=== PATIENT | female | born 1940 | race Caucasian/White ===

== ENCOUNTER → 2016-09-14 | Outpatient (CLI) | payer OTHER ==
[~2016-09-14] VITALS: Ht 154.9 cm; Wt 83.2 kg
[~2016-09-14] MED LIST: ADVIL PM CAPLE1 EACH PO; ATENOLOL 25 MG25 M1 PO; CALTRATE 600 +1 EACH PO; FISH OIL + D31 EACH PO; MOBIC15 MG PO; OCCUVITE; SERTRALINE HCL100 MG PO; TRAMADOL 50 MG50 MG PO; ZOCOR 20 MG TAB20 M1 PO
--- NOTE | ~2016-09-14 | HPC ---
[facility] [place] [address] PAIN MANAGEMENT CONSULTATION Name: MIESHA BATES Room #: REG [facility] Ryan.#: [id number] Admission: 09/14/16 Attend Phys: Robinson Bright DO Discharge: Date of : 40 Report #: [id number] THIS REPORT FOR: //name// CC: Sammie Bright The patient is a 76-year-old female who was seen at the end of last year, February and March 2016. She had been referred for consideration for right L4-L5 and L5-S1 transforaminal epidural injections. 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 She developed an antalgic gait in August with acute exacerbation of pain in low back, beltline with paresthesia in the right leg. We did 2 transforaminal epidural injections, L4-L5 in February with 65% overall improvement of function, at L5-S1 in March with again incremental improvement of pain. She returns to pain clinic today noting that all those injections afforded near 100% relief for 6 months. Pain has come back, it is a little different. Pain is primarily low back, right buttock, posterior thigh, exacerbated with standing and walking, vacuuming and sweeping. She denies any myelopathic symptoms. PHYSICAL EXAMINATION: Shows a 76-year-old female, BMI is 34.7 kilograms per meter squared. Blood pressure is 138/88, pulse 67, respirations 16. Rises from chair using armrest. Gait is tandem. Does have positive straight leg raise on the right. Slight decreased right hip flexion strength. 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 Unfortunately, insurance denied this as she has not had physical therapy yet, she is currently progressing with physical therapy with dwindling efficacy from the knee standpoint. We reviewed diagnostic findings including MRI of the lumbar spine from September 2012, does note buckling left greater than right ligamentum flavum at L3-L4, some facet arthritis, all resulting in mild bilateral neural foraminal stenosis, L4-L5 notes grade 1 anterolisthesis at L4-L5. AP diameter is full, but does have bilateral neural foraminal narrowing and does have a small central disk at L5-S1 with hypertrophic facet changes, right greater than left. ASSESSMENT: Symptomatic lumbar radiculopathy. RECOMMENDATION: Right L4-L5 transforaminal epidural injection today, follow up in 4 weeks for reevaluation. If no significant relief, we will proceed with midline epidural injection under fluoroscopy at L5-S1. The patient does not require medication management at this time, she uses tramadol p.r.n. pain, meloxicam 15 mg 1 a day. These medications are being prescribed by her primary treating physician, CAROLANN [place]ía. [place] [address] PAIN MANAGEMENT CONSULTATION Name: MIESHA BATES Elizabeth Room #: REG DANE Mckeon#: [id number] Admission: 09/14/16 Attend Phys: Robinson Bright DO Discharge: Date of : 40 Report #: [id number] PROCEDURE: Right L4-L5 transforaminal epidural injection under fluoroscopy. PROCEDURE NOTE: After both written and informed consent was obtained including risk of spinal cord damage, infection, increased pain and paralysis, the patient agreed to proceed. The patient was taken to the fluoroscopy suite, placed in a prone position with appropriate abdominal bolstering. After sterile prep with ChloraPrep and sterile drape, a skin wheal with 1% Xylocaine was raised. A 22 gauge 4-1/2 inch epidural Tuohy needle was inserted. From an oblique approach into the posterior-superior aspect of the right L4-L5 neural foramen with continuous pressure on the glass syringe plunger for loss of resistance. Glass syringe was filled with 2 cc of 0.1 Xylocaine. The glass loss of resistance syringe was removed. A low volume extension tubing was connected, negative aspiration was accomplished for cerebrospinal fluid or blood. 1 mL of Omnipaque was injected which showed spread both within the epidural space and laterally along the nerve root. This was followed with 80 mg of triamcinolone plus 1 mL of 1.5% preservative-free Xylocaine. Needle was partially withdrawn, 0.5 mL of Xylocaine was injected to clear the needle and the needle was removed. The area was cleansed, band-aid was applied. The patient was allowed to ambulate to the recovery room, discharged in good and stable condition. <ELECTRONICALLY SIGNED> By: Robinson Bright DO 09/15/16 0713 [id number] 0224 Robinson Bright DO /nt
[2016-09-14 09:30] VITALS: BP 138/88
== END | disposition home or self-care (01) ==
LOC: PAIN 06:59
DX: M54.16 Radiculopathy, lumbar region (principal); F17.210 Nicotine dependence, cigarettes, uncomplicated; Z96.641 Presence of right artificial hip joint

== ENCOUNTER → 2016-10-05 | Outpatient (CLI) | payer OTHER ==
[~2016-10-05] VITALS: Ht 154.9 cm; Wt 82.1 kg
--- NOTE | ~2016-10-05 | HPC ---
[facility] [address] PAIN MANAGEMENT CONSULTATION Name: MIESHA BATES [id number] Admission: 10/05/16 Attend Phys: Robinson Bright DO Discharge: Date of : 40 Report #: [id number] THIS REPORT FOR: //name// CC: Sammie Brihgt HISTORY OF PRESENT ILLNESS: This patient is a 76-year-old female, prior seen in the pain clinic on 09/14/2016. We did a right L4-L5 transforaminal injection at that time. She returns to the pain clinic today noting about 75% overall improvement of baseline pain, still has worsening of the pain throughout the day, pain exacerbated with rotational activity including sweeping and vacuuming. PHYSICAL EXAMINATION: Shows slight decreased right hip flexion strength, minimally antalgic gait. Positive straight leg raise on the right at 30 degrees, though it is significantly improved from prior exam. Vital signs show modest hypertension at 150/89, pulse 61, respirations 16. We reviewed MRI findings from September of 2012, small disk protrusion at L5-S1, anterolisthesis of grade 1 at L4-L5. ASSESSMENT: Symptomatic lumbar radiculopathy by clinical exam and history, 75% improvement following the initial injection. RECOMMENDATIONS: Right L4-L5 transforaminal epidural injection. Follow up simply as needed. Given the good relief with one injection, I am hopeful that two injections will get the patient back to baseline. I will be happy to see her on an as needed basis. We can do a third injection only if indicated. ASSESSMENT: Symptomatic lumbar radiculopathy, 75% improvement following one transforaminal epidural injection with ongoing symptoms that still impact function. PROCEDURE: Transforaminal lumbar epidural injection under fluoroscopy. PROCEDURE NOTE: After both written and informed consent was obtained including risk of spinal cord damage, infection, increased pain and paralysis, the patient agreed to proceed. The patient was taken to the fluoroscopy suite, placed in a prone position with appropriate abdominal bolstering. After sterile prep with ChloraPrep and sterile drape, a skin wheal with 1% Xylocaine was raised. A 22 gauge 4-1/2 inch epidural Tuohy needle was inserted. From an oblique approach into the posterior-superior aspect of the right L4-L5 neural foramen with continuous pressure on the glass syringe plunger for loss of resistance. Glass syringe was filled with 2 cc of 0.1 Xylocaine. The glass loss of resistance syringe was removed. A low volume extension tubing was connected, negative aspiration was accomplished for cerebrospinal fluid or blood. 1 mL of Omnipaque was injected which showed spread both within the epidural space and laterally along the nerve root. This was followed with 80 mg of triamcinolone plus [address] [address] PAIN MANAGEMENT CONSULTATION Name: MIESHA BATES Elizabeth Room #: REG [facility] Mike#: [id number] Admission: 10/05/16 Attend Phys: Robinson Bright DO Discharge: Date of : 40 Report #: [id number] of 1.5% preservative-free Xylocaine. Needle was partially withdrawn, 0.5 mL of Xylocaine was injected to clear the needle and the needle was removed. The area was cleansed, band-aid was applied. The patient was allowed to ambulate to the recovery room, discharged in good and stable condition. RECOMMENDATION: Continue meloxicam one daily and tramadol p.r.n., these are being prescribed by CAROLANN García. <ELECTRONICALLY SIGNED> By: Robinson Bright DO 10/09/16 0856 1210 1542 Robinson Bright DO /nt
[2016-10-05 10:08] VITALS: BP 150/89
== END | disposition home or self-care (01) ==
LOC: PAIN 06:40
DX: M54.16 Radiculopathy, lumbar region (principal); F17.200 Nicotine dependence, unspecified, uncomplicated; Z98.890 Other specified postprocedural states

== ENCOUNTER → 2017-03-19 | Outpatient (CLI) | payer OTHER ==
[~2017-03-19] VITALS: Ht 154.9 cm; Wt 81.2 kg
[~2017-03-19] MED LIST changes: +IBUPROFEN 800800 M1 PO
--- NOTE | ~2017-03-19 | HPC ---
[facility] [place] [address] PAIN MANAGEMENT CONSULTATION Name: MIESHA BATES ROBEL Room #: REG Chuy Davis.#: [id number] Admission: 03/19/17 Attend Phys: Robinson Bright DO Discharge: Date of : 40 Report #: [id number] THIS REPORT FOR: //name// CC: Sammie Bright HISTORY OF PRESENT ILLNESS: The patient is a 76-year-old female, prior seen in the pain clinic on 02/22/2017 given a right L4-L5 transforaminal epidural injection. She returns to the pain clinic today noting that the injection afforded good relief. Rates her pain actually quite nominal 1 out of 10, but still is exacerbated with activity. She notes that if she stands and walks or bends such as fixing, her pain becomes problematic in the right leg and buttock down to the foot. She reports about 75% relief following the last injection. PHYSICAL EXAMINATION: Unchanged. This is a 76-year-old female. BMI is 33.8 kilograms per meter squared. Blood pressure shows modest elevation at 155/79, pulse 64 and respirations 20. Rises from chair using armrest, nominally antalgic gait though positive straight leg raise on the right. ASSESSMENT: Symptomatic lumbar radiculopathy in a patient with right L4 radicular pain, 75% improved following right epidural injection. RECOMMENDATION: After discussion with the patient today, we have elected to repeat the right L4-L5 transforaminal epidural injection and simply follow up as needed. PROCEDURE: Transforaminal lumbar epidural injection L4-L5 on the right under fluoroscopy. PROCEDURE NOTE: After both written and informed consent was obtained including risk of spinal cord damage, infection, increased pain and paralysis, the patient agreed to proceed. The patient was taken to the fluoroscopy suite, placed in a prone position with appropriate abdominal bolstering. After sterile prep with ChloraPrep and sterile drape, a skin wheal with 1% Xylocaine was raised. A 22 gauge 4-1/2 inch epidural Tuohy needle was inserted. From an oblique approach into the posterior-superior aspect of the left L4-L5 neural foramen with continuous pressure on the glass syringe plunger for loss of resistance. Glass syringe was filled with 2 cc of 0.1 Xylocaine. The glass loss of resistance syringe was removed. A low volume extension tubing was connected, negative aspiration was accomplished for cerebrospinal fluid or blood. 1 mL of Omnipaque was injected which showed spread both within the epidural space and laterally along the nerve root. This was followed with 80 mg of triamcinolone plus 1 mL of 1.5% preservative-free Xylocaine. Needle was partially withdrawn, 0.5 mL of Xylocaine was injected to clear the needle and the needle was removed. [facility] [address] [place] [address] PAIN MANAGEMENT CONSULTATION Name: MIESHA BATES ROBEL Room #: REG DANE Mckeon#: [id number] Admission: 03/19/17 Attend Phys: Robinson Bright DO Discharge: Date of : 40 Report #: [id number] was cleansed, Band-Aid was applied. The patient was allowed to ambulate to the recovery room, discharged in good and stable condition. <ELECTRONICALLY SIGNED> By: Robinson Bright DO 03/26/17 0759 1608 0441 Robinson Bright DO /nt
[2017-03-19 13:18] VITALS: BP 155/79
== END | disposition home or self-care (01) ==
LOC: PAIN 06:58
DX: M54.16 Radiculopathy, lumbar region (principal); G89.29 Other chronic pain; F17.200 Nicotine dependence, unspecified, uncomplicated; Z79.899 Other long term (current) drug therapy

== ENCOUNTER → 2019-05-05 | Outpatient (CLI) | payer OTHER ==
--- NOTE | 2019-05-05 08:46 | 2DMMODE ---
[facility] [place] [address] 2 D/M-MODE ECHOCARDIOGRAM Name: MIESHA BATES ROBEL Room #: REG [facility].#: [id number] Admission: 05/05/19 Attend Phys: Bruno Gurrola, Discharge: Date of : 40 Report #: [id number] THIS REPORT FOR: //name// APPROVED REPORT Study performed: 05/05/2019 08:09:32 EXAM: Comprehensive 2D, Doppler, and color-flow Echocardiogram Patient Location: Out-Patient Status: routine BSA: 1.74 HR: 68 bpm BP: 136/90 mmHg Rhythm: NSR Other Information Study Quality: Good Indications Dyspnea on exertion, history of MVP, HTN, palpitations. 2D Dimensions RVDd: 37.05 mm IVSd: 11.00 (7-11mm) LVOT Diam: 19.00 (18-24mm) LVDd: 46.15 mm PWd: 9.24 (7-11mm) Ascending Ao: 33.67 (22-36mm) LVDs: 27.35 (25-40mm) Aortic Root: 36.38 mm Volumes Left Atrial Volume (Systole) Single Plane 4CH: 39.28 mL Single Plane 2CH: 37.93 mL LA ESV Index: 24.00 mL/m2 Aortic Valve AoV Peak Slava.: 1.44 m/s AO Peak Gr.: 8.33 mmHg LVOT Max P.94 mmHg LVOT Max V: 1.32 m/s ALBERT Vmax: 2.57 cm2 Mitral Valve E/A Ratio: 0.7 MV Decel. Time: 302.64 ms MV E Max Slava.: 0.71 m/s [facility] [address] [place] [address] 2 D/M-MODE ECHOCARDIOGRAM Name: MIESHA BATES ROBEL Room #: REG [facility]#: [id number] Admission: 05/05/19 Attend Phys: Bruno Gurrola, Discharge: Date of : 40 Report #: [id number] A Slava.: 1.03 m/s MV PHT: 87.77 ms IVRT: 124.57 ms Pulmonary Valve PV Peak Slava.: 1.24 m/s PV Peak Gr.: 6.16 mmHg Pulmonary Vein P Vein S: 0.58 m/s P Vein A: 0.33 m/s P Vein D: 0.40 m/s P Vein A Dur.: 106.1 msec P Vein S/D Ratio: 1.45 Tricuspid Valve TR Peak Slava.: 2.35 m/s RAP Estimate: 5.00 mmHg TR Peak Gr.: 22.05 mmHg PA Pressure: 27.00 mmHg Left Ventricle The left ventricle is normal size. There is normal LV segmental wall motion. Mild septal hypertrophy is present. Left ventricular systolic function is normal. LVEF is 60-65%. Mild diastolic dysfunction is present (impaired relaxation pattern). Right Ventricle The right ventricle is normal size. The right ventricular systolic function is normal. Atria The left atrium size is normal. The right atrium size is normal. Aortic Valve The aortic valve is normal in structure. No aortic regurgitation is present. There is no aortic valvular stenosis. Mitral Valve Mild mitral annular calcification. There is no mitral valve regurgitation Tricuspid Valve The tricuspid valve is normal in structure. Trace tricuspid regurgitation. Estimated PAP is 25-30mmHg. Pulmonic Valve The pulmonary valve is normal in structure. Trace pulmonic regurgitation. [facility] [address] [place] [address] 2 D/M-MODE ECHOCARDIOGRAM Name: MISEHA BATES [facility] Room #: REG [facility].#: [id number] Admission: 05/05/19 Attend Phys: Bruno Gurrola, Discharge: Date of : 40 Report #: [id number] Great Vessels The aortic root is normal in size. The ascending aorta is normal in size. IVC is normal in size and collapses >50% with inspiration. Pericardium There is no pericardial effusion. <Conclusion> Left ventricular systolic function is normal. There is normal LV segmental wall motion. LVEF is 60-65%. Mild diastolic dysfunction The aortic valve is normal in structure. No aortic regurgitation or stenosis Mild mitral annular calcification. No mitral valve regurgitation Trace tricuspid regurgitation. Estimated pulmonary artery pressure of 25-30mmHg. There is no pericardial effusion. <ELECTRONICALLY SIGNED> By: Bruno Gurrola MD, FAC 05/05/19844 4 4 Bruno Gurrola MD, FACC /INF
== END ==
LOC: CV 06:52
DX: I34.8 Other nonrheumatic mitral valve disorders (principal); I34.1 Nonrheumatic mitral (valve) prolapse; I11.9 Hypertensive heart disease without heart failure; E78.5 Hyperlipidemia, unspecified; Z87.891 Personal history of nicotine dependence; Z79.4 Long term (current) use of insulin; Z79.899 Other long term (current) drug therapy

== ENCOUNTER → 2019-08-28 | Outpatient (CLI) | payer OTHER | LOC: SJCVC 11:05 | DX: I45.10 Unspecified right bundle-branch block (principal); R00.1 Bradycardia, unspecified; R00.2 Palpitations; E11.9 Type 2 diabetes mellitus without complications; I10 Essential (primary) hypertension; E78.2 Mixed hyperlipidemia ==

== ENCOUNTER → 2019-12-05 | Outpatient (CLI) | payer OTHER | LOC: SJCVC 13:32 | PROVIDERS: ATTEND Internal Medicine | DX: R94.31 Abnormal electrocardiogram [ECG] [EKG] (principal); I45.10 Unspecified right bundle-branch block; R00.1 Bradycardia, unspecified; I10 Essential (primary) hypertension; E78.5 Hyperlipidemia, unspecified; E11.9 Type 2 diabetes mellitus without complications; Z79.899 Other long term (current) drug therapy ==

== ENCOUNTER → 2020-06-15 | Outpatient (CLI) | payer OTHER | LOC: SJCVC 14:05 | PROVIDERS: ATTEND Internal Medicine | DX: I45.10 Unspecified right bundle-branch block (principal); I10 Essential (primary) hypertension; R00.2 Palpitations; E78.5 Hyperlipidemia, unspecified; E11.9 Type 2 diabetes mellitus without complications; F17.210 Nicotine dependence, cigarettes, uncomplicated; Z96.641 Presence of right artificial hip joint; Z96.652 Presence of left artificial knee joint; Z98.890 Other specified postprocedural states; Z90.710 Acquired absence of both cervix and uterus; Z79.84 Long term (current) use of oral hypoglycemic drugs; Z79.899 Other long term (current) drug therapy; Z82.49 Family history of ischemic heart disease and other diseases of the circulatory system ==

== ENCOUNTER → 2020-12-15 | Outpatient (CLI) | payer OTHER | LOC: SJCVC 14:18 | PROVIDERS: ATTEND Internal Medicine | DX: R94.31 Abnormal electrocardiogram [ECG] [EKG] (principal); R00.0 Tachycardia, unspecified; I45.10 Unspecified right bundle-branch block; I10 Essential (primary) hypertension; R00.2 Palpitations; E78.5 Hyperlipidemia, unspecified; E11.9 Type 2 diabetes mellitus without complications; M19.90 Unspecified osteoarthritis, unspecified site; H26.9 Unspecified cataract; N81.10 Cystocele, unspecified; I34.1 Nonrheumatic mitral (valve) prolapse; M48.00 Spinal stenosis, site unspecified; F17.210 Nicotine dependence, cigarettes, uncomplicated; Z79.899 Other long term (current) drug therapy ==

== ENCOUNTER → 2021-05-04 | Outpatient (CLI) | payer OTHER | LOC: SJCVC 14:07 | PROVIDERS: ATTEND Internal Medicine | DX: R94.31 Abnormal electrocardiogram [ECG] [EKG] (principal); I45.10 Unspecified right bundle-branch block; R00.1 Bradycardia, unspecified; I10 Essential (primary) hypertension; R00.2 Palpitations; E78.5 Hyperlipidemia, unspecified; E11.9 Type 2 diabetes mellitus without complications; I34.1 Nonrheumatic mitral (valve) prolapse; F17.200 Nicotine dependence, unspecified, uncomplicated; Z79.84 Long term (current) use of oral hypoglycemic drugs; Z79.899 Other long term (current) drug therapy ==